=== PATIENT | female | born 1955 | race Two or more races ===

== ENCOUNTER 2024-11-19 00:41 | Emergency (ER) | payer BC, MEDICAID ==
[~2024-11-19] VITALS: Ht 167.6 cm; Wt 95.3 kg
[2024-11-19 02:40] LABS: PLATELET COUNT (AUTO) 164 K/uL (150-450); RED BLOOD CELL COUNT(AUTO) 4.72 MIL/uL (4.0-5.2); RED CELL DISTRIBUTION WIDTH 13.6 % (11.5-15.0); WHITE BLOOD COUNT (AUTO) 7.9 K/uL (4.3-11.0)
[2024-11-19 02:47] LABS: CALCIUM, SERUM 9.2 mg/dL (8.5-10.1); CREATININE 1.0 mg/dL (0.6-1.3); SODIUM SERUM 139.0 mmol/L (136-145); UREA NITROGEN, BLOOD 19.0 mg/dL (7-18)
[2024-11-19 03:01] LABS: ASPARTATE AMINOTRANSFERASE 18.0 U/L (15-37); NT-PRO BNP 99.0 pg/mL (0-125); TOTAL PROTEIN, SERUM 7.8 g/dL (6.4-8.2)
[2024-11-19] MEDS ORDERED: ONDANSETRON HCL/PF 4 MG/2 ML VIAL ONE (04:39)
[2024-11-19] MEDS ORDERED: HYDROMORPHONE 1 MG/1 ML DISP.SYRIN ONE (04:39)
[2024-11-19] MEDS: HYDROMORPHONE 1 MG/1 ML DISP.SYRIN IV ONE (04:44)
[2024-11-19] MEDS: ONDANSETRON HCL/PF - ER 4 MG/2 ML VIAL IV ONE (04:44)
[2024-11-19] MEDS ORDERED: PROPOFOL 0 ML IV ONE (06:04)
[2024-11-19] MEDS ORDERED: PROPOFOL 20 ML IV ONE (06:08)
[2024-11-19] MEDS: PROPOFOL 200 MG/20 ML VIAL IV ONE (06:11)
[2024-11-19 07:45] VITALS: BP 128/79; TEMP 98.5; O2SAT 96
== END 2024-11-19 08:39 | disposition home or self-care (01) ==
LOC: ER 00:47
DX: S43.084A Other dislocation of right shoulder joint, initial encounter (principal); I10 Essential (primary) hypertension; R06.02 Shortness of breath; Z88.1 Allergy status to other antibiotic agents; W18.39XA Other fall on same level, initial encounter; Y93.89 Activity, other specified; Y92.89 Other specified places as the place of occurrence of the external cause; Y99.8 Other external cause status
CPT/HCPCS: 99285; 23650; 96374; 73200; 71045; 96375; 99152; 93005; 73030 ×2; 85025; 36415; 80053; 84484; 83880; J2704; J2405 ×2; J1171; G0500